=== PATIENT | female | born 1985 | race Caucasian/White ===

== ENCOUNTER 2018-04-12 20:44 | Emergency (ER) | payer MEDICARE, OTHER ==
[~2018-04-12] VITALS: Ht 165.1 cm; Wt 72.7 kg
[~2018-04-12 20:44] MED LIST: BENZ1TAB10 PO; DSS100 PO; HALO5TAB2 PO; RISP2 PO
[2018-04-12] MEDS ORDERED: CLOZ100 PO (21:09)
[2018-04-12] MEDS ORDERED: LEVO1TAB12 PO (21:09)
[2018-04-12] MEDS ORDERED: PALI3 PO (21:09)
[2018-04-12 21:10] VITALS: BP 108/78
[2018-04-12] MEDS ORDERED: HALOPERIDOL 5 MG TABLET PO ONE (21:45)
== END 2018-04-12 21:56 | disposition home or self-care (01) ==
LOC: EMS 20:45
DX: F20.9 Schizophrenia, unspecified (principal); H57.8 Other specified disorders of eye and adnexa; F19.10 Other psychoactive substance abuse, uncomplicated; F10.10 Alcohol abuse, uncomplicated; F31.9 Bipolar disorder, unspecified; Y90.9 Presence of alcohol in blood, level not specified
CPT/HCPCS: 99284

== ENCOUNTER 2025-05-14 19:27 | Emergency (ER) | payer MEDICARE, OTHER ==
[~2025-05-14] VITALS: Ht 160 cm; Wt 65.9 kg
[~2025-05-14 19:27] MED LIST changes: -BENZ1TAB10 PO; +CLOZ100T12 PO; -DSS100 PO; -HALO5TAB2 PO; +LEVO1TAB12 PO; +PALI3TAB14 PO; -RISP2 PO
[2025-05-14 19:31] VITALS: TEMP 98.4
[2025-05-14 20:00] VITALS: BP 131/80; PULSE 99; RESP 19; O2SAT 98
[2025-05-14 20:03] LABS: PLATELET COUNT (AUTO) 264 K/uL (150-450); RED BLOOD CELL COUNT(AUTO) 4.04 MIL/uL (4.00-5.20); RED CELL DISTRIBUTION WIDTH 13.9 % (11.5-14.5); WHITE BLOOD COUNT (AUTO) 8.6 K/uL (4.5-11.0)
[2025-05-14 20:12] LABS: CALCIUM, TOTAL 8.1 mg/dL (8.8-10.5); CREATININE 0.78 mg/dL (0.60-1.30); GLOMERULAR FILTR. RATE CALC > 60 mL/min (>60); GLUCOSE,RANDOM 157 mg/dL (70-110); SODIUM SERUM 138 mmol/L (136-145); UREA NITROGEN, BLOOD 7 mg/dL (7-18)
[2025-05-14 20:14] LABS: ALCOHOL, BLOOD (SERUM) < 3 mg/dL (0-10)
[2025-05-14 20:19] LABS: HCG,QUANTITATIVE < 1 mIU/mL (0-6)
[2025-05-14 21:18] LABS: COVID AG,FIA SOURCE NASAL SWAB
[2025-05-14 21:38] LABS: SARS-COV2 (COVID) ANTIGEN,FIA Negative (Negative)
== END 2025-05-14 21:20 | disposition home or self-care (01) ==
LOC: EMS 19:27
DX: F20.9 Schizophrenia, unspecified (principal); F31.9 Bipolar disorder, unspecified; Z59.819 Housing instability, housed unspecified; Z79.3 Long term (current) use of hormonal contraceptives; Z79.899 Other long term (current) drug therapy; Z20.822 Contact with and (suspected) exposure to COVID-19
CPT/HCPCS: 99284; 87426; 80048; 84702; 85025; 36415; G0480